=== PATIENT | female | born 1960 | race Caucasian/White ===

== ENCOUNTER → 2018-09-21 | Outpatient (CLI) | payer OTHER | LOC: CAT 10:47 | DX: M47.26 Other spondylosis with radiculopathy, lumbar region (principal); M51.17 Intervertebral disc disorders with radiculopathy, lumbosacral region; M25.78 Osteophyte, vertebrae; M48.07 Spinal stenosis, lumbosacral region; N20.0 Calculus of kidney; N26.1 Atrophy of kidney (terminal); N13.30 Unspecified hydronephrosis ==